=== PATIENT | female | born 1940 | race Caucasian/White ===

== ENCOUNTER → 2019-08-15 08:47 | Outpatient (CLI) | payer MEDICARE, OTHER, SELFPAY ==
[2019-08-15 12:46] VITALS: BMI 31.7
--- NOTE | 2019-08-15 13:00 | ASPS_PTH ---
PATIENT: CARLOS A WILLIAMSON LOC: [facility] U#:[id number] AGE/SX: 85/F ROOM: RE08/15/[address]: Dr. Michael Mckeon MD : 1940 BED: DIS: SPEC #: [id number] RECD: 08/15/19 16:46 STATUS: MARY LOU ROSALIA #: [id number] YONIS: 08/15/19 13:[address]: Michael Mckeon DEPT: CYTOLOGY RECD BY: Barrie Miguel Tissues: A - Thyroid gland, NOS B - Thyroid gland, NOS C - Thyroid gland, NOS Procedures: Special Stain Group II Cytology Other HEADER OPERATION: Bilateral thyroid FNA PRE-OP DIAGNOSIS: Bilateral thyroid nodules TISSUE SUBMITTED: A - Right inferior thyroid slides x6, B - Right superior thyroid slides x3, C - Left thyroid slides x6 DIAGNOSIS CYTOLOGY A. Right inferior thyroid nodule, FNA (smears): A few benign follicular cells are noted. The specimen is limited in evaluation due to lack of adequate number of follicular cells. B. Right superior thyroid nodule, FNA (smears): Consistent with benign follicular nodule. Adequate for evaluation. C. Left thyroid nodule, FNA (smears): Consistent with benign follicular nodule. Adequate for evaluation. VARSHA:azul 08/17/19 COMMENT Correlation with clinical, radiologic findings and appropriate follow up are necessary. CYTOLOGY STUDY Slides are reviewed. CYTOLOGY GROSS A - Received are six smears labeled with the patient's name and designated per the requisition as right inferior thyroid. Submitted for staining. B - Received are three smears labeled with the patient's name and designated per the requisition as right superior thyroid. Submitted for staining. C - Received are six smears labeled with the patient's name and designated per the requisition as left thyroid. Submitted for staining. / azul 08/16/19 TC:5 CPT: 79621 x3
== END ==
PROVIDERS: Visit Provider Surgery
DX: E04.2 Nontoxic multinodular goiter (principal)
CPT/HCPCS: 88161; 88313

== ENCOUNTER 2020-12-21 09:15 | Day surgery (SDC) | payer MEDICARE, OTHER, SELFPAY ==
[2019-08-15 12:46] VITALS: BMI 31.7
--- NOTE | 2020-12-17 13:48 | EKG12_ITS ---
Test Reason : PRE-OP Blood Pressure : / mmHG Vent. Rate : 093 BPM Atrial Rate : 093 BPM P-R Int : 184 ms QRS Dur : 076 ms QT Int : 350 ms P-R-T Axes : 033 065 050 degrees QTc Int : 435 ms Normal sinus rhythm Normal ECG Confirmed by MAJO SURESH, NICOLA ([id number]), commercial production editor VEE ROWE ([id number]) on 12/18/2020 9:04:06 AM Referred By: Tom José Confirmed By:NICOLA KASPER MD
[2020-12-17 16:13] LABS: Thyroid Stim Hormone (TSH) 2.65 uIU/mL (0.358-3.74)
[2020-12-21] VITALS (11 sets, daily range): BP systolic 112–154; BP diastolic 10–100; PULSE 62–93; RESP 16–18; TEMP 36.1–36.8; O2SAT 92–96; BMI 31.2; BMI 31.3
--- NOTE | 2020-12-21 | IMM_PTH ---
PATIENT: CARLOS A WILLIAMSON [place] [facility] [place][id number] AGE/SX: 80/F ROOM: RE12/21/[address]: Dr. Tom José MD : 1940 BED: DIS: 12/22/2020 SPEC #: [id number] RECD: 12/27/20 12:37 STATUS: SOUT REQ #: [id number] YONIS: 12/21/20 00:[address]: Tom José DEPT: IMMUNOHISTOCHEMISTRY RECD BY: Kaylynn Pisano ENTERED: 12/27/20 12:38 SP TYPE: IMMUNO OTHR DR: Dr. Kiera Chopra MD Tissues: A - Axillary lymph node, NOS B - Right breast, NOS Procedures: Calponin-1(initial) CALPONIN-1 (add) CK7 (add) Pankeratin (initial) Pankeratin (add) P40 (add) PHYSICIAN & INSTITUTION [place] [id number] SPECIMEN INFORMATION: Tissue Source: A ? [facility] lymph nodes, biopsy, B - Right breast, modified radical mastectomy Clinical Info: Malignant neoplasm of overlapping sites of right breast Specimen Number: [id number] A1-A4, B7, B8 & B18 CPT code: 32287 x2, 44310 x12 METHODOLOGY: Deparaffinized sections of prefer/formalin-fixed tissue or PAP/DQ stained slides are incubated with monoclonal/polyclonal antibodies/oligonucleotide probes. Localization is made via biotin free immunoperoxidase method. Appropriate controls are performed and reacted as expected. Results on target cell population are indicated in the following table: RESULTS: ANTIBODY / CLONE RESULT Block A1 CK7 (OV-TL12/30) negative AE1-3 (AE1/AE3/PCK26) negative Block A2 CK7 (OV-TL12/30) negative AE1-3 (AE1/AE3/PCK26) negative Block A3 CK7 (OV-TL12/30) negative AE1-3 (AE1/AE3/PCK26) negative Block A4 CK7 (OV-TL12/30) negative AE1-3 (AE1/AE3/PCK26) negative Block B7 Calponin-1 (IR970T) negative P40 (BC28) negative Block B8 Calponin-1 (YL130J) positive, focal P40 (BC28) positive, focal Block B18 Calponin-1 (LC235A) negative P40 (BC28) negative These tests were developed and their performance characteristics determined by [facility]. They may not have been cleared or approved by the U.S. Food and Drug Administration. The FDA has determined that such clearance or approval is not necessary. The above immunohistochemical/dualISH markers are ordered and reviewed by the Pathologist. INTERPRETATION: A. [place] lymph nodes, biopsy: Six out of six lymph nodes, negative for metastatic carcinoma. B. 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 SJ:azul 01/07/2021 Case has been reviewed in consultation with Dr. Carbone who concurs with the above diagnosis. IDC:AM
--- NOTE | 2020-12-21 | AXNB_PTH ---
PATIENT: CARLOS A WILLIAMSON LOC: [facility] [place] U#:[id number] AGE/SX: 80/F ROOM: RE12/21/[address]: Dr. Tom Joés MD : 1940 BED: DIS: 12/22/2020 SPEC #: [id number] RECD: 12/21/20 13:13 STATUS: MARY LOU REQ #: [id number] YONIS: 12/21/20 00:[address]: Tom José DEPT: SURGICAL PATHOLOGY RECD BY: Kaylynn Pisano ENTERED: 12/21/20 13:14 SP TYPE: AX NODE BX OTHR DR: Dr. Kiera Chopra MD Tissues: A - Axillary lymph node, NOS Procedures: Frozen Section (charge) Frozen Section Add'l ([facility]) Surgery Specimen Level IV Surgery Specimen Level V HEADER OPERATION: Modified radical mastectomy, sentinel lymph node biopsy PRE-OP DIAGNOSIS: Malignant neoplasm of overlapping sites of right breast TISSUE SUBMITTED: A ? [place] lymph node, FS at 1239, B ?Right breast FROZEN SECTION DIAGNOSIS A. [place] lymph nodes, biopsy: Three out of three lymph nodes, negative for metastatic carcinoma. VARSHA:azul 12/21/2020 MICROSCOPIC DIAGNOSIS A. [place] lymph nodes, biopsy: Six out of six lymph nodes, negative for metastatic carcinoma. See comment. B. 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 Focal ductal carcinoma in situ also present. See cancer summary in the comment section. SJ:azul 01/07/2021 COMMENT A. The lymph nodes are negative for metastatic carcinoma on multiple H & E levels and immunohisto-chemical stains for cytokeratins ([id number]). Additional three lymph nodes are noted in block 4. B. BREAST CANCER SUMMARY Procedure ? total mastectomy Specimen laterality ? right Invasive tumor: Tumor site ? upper inner quadrant Tumor size ? greatest dimension of invasive tumor 0.2 x 0.1 cm. Invasive tumor measures 7 mm in greatest dimension in the biopsy specimen done at [facility]. Histologic type ? invasive ductal carcinoma, no special type Histologic grade (Boyd grade): Glandular/tubular differentiation score - 1 Nuclear pleomorphism score - 1 Mitotic count score - 1 Overall grade ? grade 1 (score of 3) Tumor focality ? multiple foci of invasive carcinoma. Minute foci of invasive carcinoma are noted adjacent to solid papillary carcinoma. Ductal Carcinoma In Situ ? present Size (extent) of DCIS ? multifocal, largest focus measures 2.5 x 2.3 x 2.3 cm. Second largest focus measures 0.8 x 0.8 x 0.5 cm Smallest focus measures 0.6 cm in diameter. Number of blocks with DCIS ? 12 Number of blocks examined ? 20 Architectural pattern ? solid papillary carcinoma, cribriform and solid Nuclear grade ? grade 2 Necrosis ? not identified Lobular carcinoma in situ ? not identified Tumor extension: Skin ? skin is present and uninvolved. Nipple ? DCIS does not involve nipple epidermis. Skeletal muscle ? no skeletal muscle is present. Margins ? invasive carcinoma and ductal carcinoma in situ and solid papillary carcinoma are 1.3 cm away from the closest posterior margin. Regional Lymph Nodes: Number of lymph nodes examined ? 6 Number of sentinel lymph nodes examined - 6 Number of lymph nodes with macrometastases, micrometastases or isolated tumor cells ? 0 Treatment effect ? no known presurgical therapy. Lymphvascular invasion ? not identified Dermal lymphvascular invasion ? not identified Additional Pathologic Findings ? changes consistent with previous biopsy site. Intraductal hyperplasia with focal atypia. Ancillary Studies: Previously performed at [facility] on same tumor ([id number]) ER: 99% IL: 99% Jsc3xam: negative (1+) Microcalcifications ? not identified Clinical History - Please make reference to previous specimen from [facility] ([id number]) right breast, larger mass, needle core biopsy with diagnosis of small focus of invasive ductal carcinoma ( 1 mm) arising in a background of solid papillary carcinoma and right breast, small mass, more cranial, needle core biopsy with diagnosis of invasive ductal carcinoma (7 mm) in a background of solid papillary carcinoma. Pathologic Stage: pT1b pN0(sn) pMx , The above summary is in compliance with [employer] (CAP) Cancer Protocols Checklist and [place] Joint Committee on Cancer (AJCC), Staging Manual, 8th Ed. Immunohistochemistry ([id number]) supports the above diagnosis of small foci of invasive ductal carcinoma arising in the background of solid papillary carcinoma and ductal carcinoma in situ. All the tumor slides including IHC slide on the tumor are sent to the [facility] for expert opinion and reviewed by Dr. Fagan and above diagnosis is rendered. The complete report is viewable in patient EMR. This case is discussed with Amaya Marin PA-C, at Dr. José?s office on 01/03/2021. Case has been reviewed in consultation with Dr. Carbone who concurs with the above diagnosis. IDC:AM MICROSCOPIC DESCRIPTION Slides are reviewed. GROSS DESCRIPTION A - Received fresh for frozen section diagnosis labeled with the patient's name is a specimen designated sentinel lymph node. The specimen consists of a piece of adipose tissue containing nodules measuring 5 x 5 x 2 cm. Three lymph nodes are identified measuring 0.5 to 1 cm in greatest dimension. The lymph nodes are submitted in entirety for frozen section diagnosis in three cassettes with each cassette containing one lymph node. Focal indurated areas are also noted, possible lymph nodes, are submitted in cassette 4. / SJ:rg 12/21/20 B - Received in fixative is one container labeled with the patient's name and designated right breast. The specimen consists of a mastectomy specimen measuring 21 x 19 x 4 cm and containing an ellipse of skin and centrally located nipple. The skin fragment measures 6 x 5 cm. No cutaneous lesions are identified. The specimen weighs 590 gm. The specimen is differentially inked as follows: superior - blue, inferior - green and posterior - black. Serial sections reveal a firm, indurated, reddish-garcia mass in the upper inner quadrant, measuring 2.5 x 2.3 x 2.3 cm. The mass is located 1.3 cm from its closest (posterior) margin of excision. Located approximately 5 mm lateral to this mass is a second mass measuring 0.6 cm in diameter. The remainder of the uninvolved breast parenchyma is garcia-yellow and interrupted focally by white, fibrous streaks. Careful dissection of the lateral portion of the breast does not reveal structures resembling lymph nodes. Located 8 mm posterior to the largest mass is a third mass measuring 0.8 x 0.8 x 0.5 cm and located 1.3 cm from its closest (posterior) margin of excision. Dimensional Engineer sections are submitted in 12 cassettes as follows: 1 - nipple and areola, 2 - perpendicular superior, inferior and posterior margins, 3 - perpendicular medial margin, 4 - perpendicular lateral margin, 5 & 6 - assistance representative sections of largest mass, 7 - smallest mass, 8 - second largest mass, 9-12 - assistance representative sections of uninvolved breast parenchyma. Note, sections are submitted after additional fixation. / AM:azul 12/25/20 More sections are submitted as follows: 13-20 ? rest of the largest mass. / AM:azul 12/27/20 TC:0 CPT: 71359, 13765, 43110, 42815 x2
--- NOTE | 2020-12-21 07:15 | NM_ITS ---
PROCEDURE: NUCLEAR MEDICINE Injection [place] Node - RIGHT breast(s). REASON FOR EXAM: Female, 80 years old. Right breast cancer. TECHNIQUE: [place] node localization using radionuclide methods of the RIGHT breast(s) was performed following subcutaneous administration of 1.1 mCi of of sulfur colloid Tc-99m. COMPARISON STUDIES : NM - None. FINDINGS: 1.1 mCi of technetium labeled sulfur colloid was injected subcutaneously in 4 equal aliquots at the biopsy site in the periareolar region. NM/Lymph Node Injection Only IMPRESSION: Subcutaneous injection of 1.1 mCi of technetium labeled sulfur colloid sentinel node imaging. Electronically Signed: Jc Giron MD at 11:10 EDT , Service support ,
[2020-12-21] MEDS: Lactated Ringers 1,000 ML 100 ML IV ×2 (10:16→12:30)
[2020-12-21] MEDS: Cefazolin 2 GM in 0.9% Normal Saline 100 ML IV ×2 (11:42→19:49)
[2020-12-21] MEDS: Isosulfan Blue 1% 5 ML Vial (12:12)
[2020-12-21] MEDS: Bupivacaine Mpf 0.5% 30 ML VIAL (12:43)
--- NOTE | 2020-12-21 12:48 | PCM.OPRPT ---
Problems Associated Problem List Diagnoses (1) Malignant neoplasm of overlapping sites of right female breast: Report of Operation Date of Procedure: 12/21/20 Pre-Operative Diagnosis: c50.811 Malignancy female breast right upper outer quadrant Post-Operative Diagnosis: Same Surgery/Procedure Performed:: 1. Injection of 4 cc of Lymphazurin blue 2. Simple mastectomy 3. Right sentinel lymph node biopsy Surgeon: Tom José Type of Anesthesia: General Anesthesiologist: Parth Camargo Specimen's removed: 1. Right breast 2. Right axillary sentinel lymph nodes Drains: two 15 round Luis Miguel-Bonner drains Estimated Blood Loss (mL): 100 cc Fluids Replaced: 1400 cc crystalloid Description of Procedure: Patient was brought into the operating room. Placed in the supine position under excellent general anesthetic right breast was prepped with alcohol 4 cc of Lymphazurin blue were injected circumareolar Leif. Right breast and axillary area was sterilely prepped and draped in usual fashion. Elliptical incision was made around the nipple areolar complex extending medially and laterally. PlasmaBlade was used to create flaps medially to the sternum inferiorly to the rectus abdominis muscle superiorly to the clavicle and then laterally down to the latissimus dorsi muscle. I remove the breast from the pectoralis major muscle with the use of the PlasmaBlade I had good hemostasis. A few areas I had to use medium ligaclips. I detached the breast in its entirety and sent it to pathology for permanent sectioning. I entered the clavipectoral fascia I used the Hernando counter to identify hot area in the axilla I entered this area saw an enlarged blue lymph nodes and remove them with the harmonic dissector. Once I remove them once again the Hernando counter lit up quite high and I sent them to pathology for frozen section. I placed the Hernando counter back into the axilla and I had no further hot areas that I could identify. Two small stab incisions on the skin and the 15 round Luis Miguel-Bonner drains were placed in the cavity. Cavity was irrigated good and the stasis was noted. I sutured the drains in with 2 sutures with 3-0 nylon. The wound was then closed deep dermals of 3-0 Vicryl then a running 4-0 Monocryl. Steri-Strips were applied sterile dressings were applied and the patient tolerated the procedure well. Admit VTE Documentation VTE Present on Admission: No VTE Mechan Device Prophylaxis: SCD's VTE Pharm Prophylaxis ordered?: No Reason prophylaxis not ordered:: Treatment Not Indicated
[2020-12-21] MEDS: 0.9% Normal Saline 1,000 ML 65 ML IV (16:40)
[2020-12-21] MEDS: Atenolol 50 MG Tablet PO (19:51)
[2020-12-22 02:44] VITALS: BMI 31.3
[2020-12-22] MEDS: Cefazolin 2 GM in 0.9% Normal Saline 100 ML IV ×2 (04:07→11:59)
[2020-12-22 05:00] VITALS: BP 129/65; PULSE 67; RESP 16; TEMP 36.8; O2SAT 95
[2020-12-22] MEDS: Levothyroxine 50 MCG Tablet PO (06:25)
[2020-12-22] MEDS: 0.9% Normal Saline 1,000 ML 65 ML IV (06:31)
[2020-12-22 06:44] VITALS: BMI 31.3
[2020-12-22] MEDS: Atenolol 50 MG Tablet PO (08:07)
[2020-12-22 08:18] VITALS: BP 138/73; PULSE 87; RESP 16; TEMP 36.8; O2SAT 94
--- NOTE | 2020-12-22 08:52 | DCINST_ITS ---
Discharge Instructions Procedure General Surgery Diet Discharge Diet: Light diet - advance as tolerated (If you have questions about your diet instructions, please talk to your doctor.) Activity Discharge Activity: May Not Drive (for 1 week or while taking narcotic pain medicine.) May shower in (days): 1 Lifting Restrictions: 10 pounds Dressing / Incision Call your doctor if your incision/area has: Continuous Slow Oozing, Sudden Increased Bleeding, Increased Pain/ Swelling, Increased Redness and Foul Smelling Discharge Call your doctor if you observe: Fever of 101 or Higher Suture Line Care: Avoid Pulling/Pushing and Avoid Pinching/Bending Additional Dressing/Incision Instructions:: Change or remove dressing in 4 days. Leave steri-strips in place for 1 week. Follow Up Care Please Follow Up With: Amaya Marin PA-C When: Call office to schedule an appointment to be seen in about 10 days. Test Results: Test results from this visit will be discussed in further detail at your follow-up appointment, if applicable. Discharge Plan Admission Attending Provider: Tom José Primary Care Provider: Kiera Chopra Instructions Patient Instructions: Mastectomy: After Surgery Discharge Orders/Prescriptions Prescriptions: New oxycodone-acetaminophen [Endocet] 5-325 mg tablet 1 tab PO Q6H PRN (Reason: pain) 5 Days Qty: 20 RF: 0 Continued atenolol 50 mg tablet 50 mg PO BID RF: 0 dpcquqbkmzah-robzjacs-uhgbfp Tablet 1 tab PO DAILY RF: 0 llhqr-iv-6-yqu-vfj-ionyroc-ast [MegaRed [place]-3 Krill Oil] 1,000-230-60 mg capsule 1 cap PO DAILY RF: 0 cholecalciferol (vitamin D3) 3,000 unit tablet 3,000 unit tablet 2,500 unit PO DAILY RF: 0 oyeuxdf-pqvvgthqr-W complex tablet 1 tab PO TID RF: 0 vitamin P36-lbzea acid 500-400 mcg tablet 1 tab PO DAILY RF: 0 Move Free Joint Health 750 mg-100 mg- 1.65 mg-108 mg tablet 1 tab PO DAILY RF: 0 Ultra CoQ10 75 mg capsule 75 mg PO DAILY RF: 0 aspirin 81 mg tablet,delayed release (DR/EC) 81 mg PO DAILY RF: 0 levothyroxine 50 mcg Tablet 50 mcg PO DAILY RF: 0 Referrals / Follow Up: Kiera Chopra MD [Primary Care Provider] -
--- NOTE | 2020-12-22 12:49 | NURSING ---
pt taught kyle care
== END 2020-12-22 13:33 | disposition home or self-care (01) ==
LOC: SDC 09:16 → AC 09:18 → MS3 15:46
PROVIDERS: Anesthesiology; PCP Internal Medicine; Referring Provider Surgery; Visit Provider Surgery
PROC: (CPT 19307; principal; 2020-12-21 11:45)
DX: C50.211 Malignant neoplasm of upper-inner quadrant of right female breast (principal); D05.11 Intraductal carcinoma in situ of right breast; I10 Essential (primary) hypertension; Z79.899 Other long term (current) drug therapy
CPT/HCPCS: 00404; 19307; 38792; 84443; 88305; 88307; 88331; 88332; 88341; 88342; 93005; A9541; J7030; J7120; J2405; Q9968